=== PATIENT | female | born 1965 | race Hispanic/Latino ===

== ENCOUNTER → 2019-03-28 | Outpatient (REF) | payer MEDICAID ==
[2019-03-28 17:46] LABS: ALBUMIN 3.8 GM/DL (3.2-5.2); ALT/SGPT 27 U/L (12-78); BASO % 0.8 % (0.0-1.0); BILIRUBIN,TOTAL 0.5 MG/DL (0.2-1.0); BLOOD UREA NITROGEN 16 MG/DL (7-18); CALCIUM LEVEL 8.1 MG/DL (8.5-10.1); CARBON DIOXIDE LEVEL 25 MEQ/L (21-32); CHLORIDE LEVEL 111 MEQ/L (98-107); CHOLESTEROL LEVEL 188 MG/DL (<200); CHOLESTEROL RISK RATIO 5.371 (<5); CREATININE FOR GFR 0.79 MG/DL (0.55-1.30); EOS # 0.2 10^3/uL (0.0-0.50); EOS % 3.3 % (0.0-3.0); FREE T4 1.05 NG/DL (0.76-1.46); GLOMERULAR FILTRATION RATE > 60.0 (>51); GLUCOSE, FASTING 88 MG/DL (70-100); HDL CHOLESTEROL 35 MG/DL (>40); HEMATOCRIT 44.9 % (36.0-47.0); HEMOGLOBIN 15.2 g/dl (12.0-15.5); LDL CHOLESTEROL 98 MG/DL (<100); LYMPH # 1.5 10^3/uL (1.5-4.5); LYMPH % 30.8 % (24.0-44.0); MEAN CORPUSCULAR HEMOGLOBIN 30.4 pg (27.0-33.0); MEAN CORPUSCULAR HGB CONC 33.9 g/dl (32.0-36.5); MEAN CORPUSCULAR VOLUME 89.8 fl (80.0-96.0); MONO # 0.3 10^3/uL (0.0-0.8); MONO % 6.7 % (0.0-5.0); NEUTROPHILS # 2.9 10^3/uL (1.8-7.7); NEUTROPHILS % 58.2 % (36.0-66.0); NON-HDL-C 153 MG/DL; PLATELET COUNT, AUTOMATED 215 10^3/uL (150-450); POTASSIUM SERUM 3.9 MEQ/L (3.5-5.1); SODIUM LEVEL 144 MEQ/L (136-145); TOTAL 25(OH) VITAMIN D 21.6 NG/ML (30.0-100.0); TOTAL PROTEIN 6.6 GM/DL (6.4-8.2); TRIGLYCERIDES LEVEL 273 MG/DL (<150); WHITE BLOOD COUNT 4.9 10^3/uL (4.0-10.0)
[2019-03-28 19:07] LABS: HEMOGLOBIN A1c 5.9 %
[2019-03-31 00:06] LABS: Lyme Disease IgG/IgM Antibodie <0.91 ISR (0.00-0.90); Lyme Disease IgM Ab Quantitati <0.80 index (0.00-0.79)
== END ==
LOC: M LAB REF 16:45
PROVIDERS: ATTEND Family Medicine
DX: Z13.228 Encounter for screening for other metabolic disorders (principal)